=== PATIENT | female | born 1975 | race Two or more races ===

== ENCOUNTER → 2018-10-29 | Day surgery (SDC) | payer OTHER, BC ==
[~2018-10-29] MED LIST: Acetaminophen TAB* 325 MG PO PRN; Buffered Lidocaine 0.9% SYRIN* 5 ML/SYR SYRINGE INTRADERM ONE; Bupivacaine 0.25% EPI 200,000* 30 ML SDV ONE; Cisatracurium* 2 MG/ML MDV 5 ML ONE; Dexamethasone IV* 4 MG/ML 1 ML (4 MG) ONE; DiMENhydriNATE IV* 50 MG/ML VIAL IV PUSH PRN; Famotidine IV* 10 MG/ML 2 ML (20 mg) ONE; Ketorolac INJ* 30 MG/ML 1 ML VIAL ONE; Lactated Ringers 1000 ML Bag* 1,000 ML IV SCH; Lidocaine 2% PF * 5 ML VIAL ONE; Midazolam* 1 MG/ML 2 ML VIAL (2 MG) ONE; Naloxone* 0.4 MG/ML 1 ML VIAL IV PRN; Ondansetron INJ* 2 MG/ML VIAL IV PRN; Ondansetron INJ* 2 MG/ML VIAL ONE; PROCHLORPERAZINE INJ 5 MG/ML 2 ML VIAL IV PRN; Propofol* 10 MG/ML 20 ML BTL ONE; Succinylcholine* 20 MG/ML 10 ML VIAL ONE; diPHENhydraMINE IV* 50 MG/ML 1 ml VIAL (BENADRYL) IV PRN; fentaNYL* 50 MCG/ML 2 ML VIAL (100 MCG VIAL) IV PRN; fentaNYL* 50 MCG/ML 2 ML VIAL (100 MCG VIAL) ONE
[2018-10-29 10:01] LABS: ABS Basophils 0 10^3/ul (0-0.2); ABS Eosinophils 0.2 10^3/ul (0-0.6); ABS Lymphocytes 1.2 10^3/ul (1.0-4.8); ABS Monocytes 0.7 10^3/ul (0-0.8); ABS Neutrophils 5.5 10^3/ul (1.5-7.7); ABS Nucleated RBC 0 10^3/ul; Eosinophil % 2.2 %; Hematocrit 39 % (35-47); Hemoglobin 13.2 g/dl (12.0-16.0); Lymphocyte % 15.7 %; Mean Corpuscular HGB Conc 34 g/dl (31-36); Mean Corpuscular Hemoglobin 29 pg (27-31); Mean Corpuscular Volume 87 fL (80-97); Mean Platelet Volume 7.5 fL (7.4-10.4); Nucleated Red Blood Cells % 0.1; Platelet Count 266 10^3/ul (150-450); Red Blood Count 4.49 10^6/ul (4.00-5.40); Red Cell Distribution Width 13 % (10.5-15); White Blood Count 7.5 10^3/ul (3.5-10.8)
[2018-10-29 15:07] VITALS: BP 126/92
--- NOTE | 2018-10-30 00:15 | OP ---
OPERATIVE REPORT: DATE OF OPERATION: 10/29/18 DATE OF : 77 SURGEON: Lety Shaffer MD CLINIC MANAGER: None. ANESTHESIA: General endotracheal with local anesthesia. PRE-OP DIAGNOSIS: Desires permanent sterility. POST-OP DIAGNOSIS: Desires permanent sterility. OPERATIVE PROCEDURE: Laparoscopic bilateral tubal ligation. FINDINGS: Revealed normal-appearing tubes and ovaries bilaterally, normal- appearing uterus, normal- appearing bowel. Appendix not able to be identified. Normal-appearing liver edge. ESTIMATED BLOOD LOSS: Minimal. URINE OUTPUT: 120 cc of clear yellow urine. FLUIDS: 2000 cc of crystalloid. COMPLICATIONS: None apparent. DISPOSITION: Stable to recovery room. DESCRIPTION OF PROCEDURE: The patient was placed in dorsal lithotomy position. Abdomen was prepped i n universal Shailesh stirrups. Abdomen and vagina were prepped and draped in a sterile standard fash ion. The self-cath was placed for drainage of clear yellow urine. Sterile Graves speculum was inser niki, cervix was visualized, grasped on the anterior lip with a single-tooth tenaculum and a Hulka cla mp was placed without complications. Single-tooth tenaculum was removed. Sterile speculum was remove d. Attention was then focused to abdominal portion of the procedure. The infraumbilical area was in fused with 0.25% Marcaine with epi 8 cc. Incision was made using an 11 scalpel blade. The Santhosh wa s used to grasp the fascia. Fascia was incised using scalpel and Metzenbaum scissors. The peritoneu m was then entered bluntly. Devaughn trocar and trocar sheath were then inserted and insufflate balloo n was insufflated. Please note that prior to this, 0 Vicryl sutures were placed in the fascial edge. After insufflation of the Devaughn catheter balloon, laparoscope was inserted confirming excellent po sitioning. Pneumoperitoneum was then created using CO2. The tubes and ovaries were visualized as wel l as the uterus, bowel, liver edge; all of which were noted to have a normal appearance without any e vidence of adhesions. An operative scope was then used using a Quireppinger. The left tube was cauter ized for approximately a 3 cm portion and this process was then repeated on the right. Pneumoperiton eum was then released. The patient was returned to dorsal lithotomy position. The fascia was reappr oximated using 0 Vicryl in a running fashion and the stay sutures were released on the fascia. The s kin was reapproximated using 4-0 Vicryl in a subcuticular fashion. Hulka clamp was then removed. Al l sponge, instrument, and blade counts were correct throughout the case. The patient tolerated the p rocedure well and went to recovery room in stable condition. [id number]/[facility] #: [id number]
== END | disposition home or self-care (01) ==
LOC: OR 09:06
PROVIDERS: ATTEND Obstetrics & Gynecology
DX: Z30.2 Encounter for sterilization (principal); Z87.891 Personal history of nicotine dependence; C92.12 Chronic myeloid leukemia, BCR/ABL-positive, in relapse
CPT/HCPCS: 36415; 81025; 85025; 86850; 86900; 86901; J0330; J1100; J1885; J2250; J2405; J2704; J3010

== ENCOUNTER 2019-12-15 09:10 | Emergency (ER) | payer OTHER, BC ==
--- OUTSIDE RECORDS SUMMARY | 2019-12-15 09:16 | XMS REPORT | Continuity of Care Document ---
:1975 External Reference #:[id number] Author Name Ke Loco M.D. (transmitted by agent of provider Megan Bajwa ) Address [address] [address] Care Team Providers Name Role Phone Nanette Moeller MD - Family Medicine Care Team Information Psychic Reader Julius Hernandez M.D. - Hematology & Care Team Information Psychic Reader [phone] Oncology Problems Active Problems Provider Date Heart murmur Mj Miguel M.D., [facility], [facility] Onset: 11/22/2013 Cardiomegaly Mj Miguel M.D., [facility], [facility] Onset: 11/22/2013 Disorder of pericardium Mj Miguel M.D., [facility], [facility] Onset: 11/28/2013 New daily persistent headache Shelbie Cleveland M.D. Onset: 12/27/2015 Social History Type Date Description Comments Sex Unknown ETOH Use Occasionally consumes alcohol Tobacco Use Start: Unknown Patient is a former quit in 1998 End: Unknown smoker Recreational Drug Use Denies Drug Use Smoking Status Reviewed: 11/01/19 Patient is a former quit in 1998 smoker Exercise Type/Frequency Exercises regularly does exercises in home gym, but mainly does work-out videos, and occasionally elliptical machine Allergies, Adverse Reactions, Alerts Active Allergies Reaction Severity Comments Date Oxycodone Hives 01/10/2016 Sprycel pericardial effusion 11/22/2018 Inactive Allergies NKDA 11/22/2013 Medications Active Medications SIG Qnty Indications Ordering Date Provider Irbesartan 1 by mouth every 90tabs Ke Costello 01/07/2019 75mg Tablets day Sloan Loco Latanoprost 1 drop to each Ke GroveFatmata 11/22/2018 0.005% Solution eye once daily Sloan Loco for glaucoma 1 tablet po Unknown daily Vitamin D3 1 by mouth every 30caps Unknown 2000Unit day Capsules Tylenol Extra Strength 2 by mouth as Unknown needed 500mg Tablets Bosulif 4 tablets once Unknown 100mg Tablets daily by mouth Vitamin B-Complex 1 by mouth every Unknown Tablets day Aarti Allergy 1 tab by mouth Unknown 180mg every day as Tablets needed Fish Oil [place]-3 take one Unknown 1000mg capsule/tablet Capsules daily by mouth Bupropion HCL ER (XL) 1 by mouth every Unknown 300mg day Tablets ER 24HR Benadryl Allergy 2 tabs once Unknown 25mg daily with Tablets bosulif by mouth as needed Pseudoephedrine HCL ER take 120mg every Unknown 12 hours 120mg Tablets ER 12HR Immunizations Description No Information Available Vital Signs Date Vital Result Comment 11/01/2019 1:18pm Height 66 inches 5'6" Weight 184.38 lb no shoes Heart Rate 76 /min BP Systolic Sitting 142 mmHg Lue (regular cuff) BP Diastolic Sitting 80 mmHg Lue (regular cuff) BP Systolic Standing 150 mmHg BP Diastolic Standing 84 mmHg BP Systolic Lying Down 134 mmHg la repeat sit BP Diastolic Lying Down 73 mmHg la repeat sit BMI (Body Mass Index) 29.8 kg/m2 Ejection Fraction 55-60% Echo 12/31/18 01/24/2019 9:14am Height 66 inches 5'6" Weight 198.25 lb Heart Rate 80 /min BP Systolic Sitting 138 mmHg BP Diastolic Sitting 82 mmHg BP Systolic Standing 130 mmHg BP Diastolic Standing 80 mmHg BMI (Body Mass Index) 32.0 kg/m2 Ejection Fraction 55/60% 12/31/18 echo Results Description No Information Available Procedures Date Code Description Status 11/01/2019 85290 EKG Tracing & Interpretation Completed 01/23/2016 746818892 Diabetic Retinal Eye Exam Completed Medical Devices Description No Information Available Encounters Description No Information Available Assessments Date Code Description Provider 11/01/2019 I10 Essential (primary) hypertension Ke Loco M.D. 11/01/2019 I50.32 Chronic diastolic (congestive) heart Ke Loco M.D. failure 11/01/2019 I34.0 Nonrheumatic mitral (valve) insufficiency Ke Loco M.D. 11/01/2019 I31.3 Pericardial effusion (noninflammatory) Ke Loco M.D. Plan of Treatment Future Appointment(s):01/20/2020 3:00 pm - [place] ECHO Schedule at [facility]11/01/2019 - Ke Loco M.D.I10 Essential (primary) nbkgipilqmimE63.32 Chronic diastolic (congestive) heart hjvbswoU61.0 Nonrheumatic mitral (valve) dvojgtvkjluuqL46.3 Pericardial effusion ( noninflammatory)New Orders:Echocardiogram, Scheduled: 01/20/20Follow up:please obtain 10/13 labs from [facility] [place] ov 10 m Functional Status Description No Information Available Mental Status Description No Information Available Referrals Description No Information Available
--- OUTSIDE RECORDS SUMMARY | 2019-12-15 09:16 | XMS REPORT | Continuity of Care Document ---
:1975 External Reference #:[id number] Author Name Garett Walsh, OD Address [address] [place] [address] Care Team Providers Name Role Phone Nanette Bess MD - Community Administrator Care Team Information Cardiovascular Lab Director [phone] Problems Description No Information Available Social History Type Date Description Comments Sex Unknown ETOH Use Occasionally consumes alcohol Tobacco Use Start: Unknown Patient has never smoked Smoking Status Reviewed: 10/21/19 Patient has never smoked Allergies, Adverse Reactions, Alerts Active Allergies Reaction Severity Comments Date Tylenol with codiene 12/02/2016 Seasonal 04/21/2019 Inactive Allergies NKDA 12/02/2016 Medications Active Medications SIG Qnty Indications Ordering Provider Date Latanoprost 1 drops both 7.5ml Garett Walsh, OD 01/17/2019 0.005% Solution eyes every night 19 Unknown Chewtabs Bosulif Unknown 400mg Tablets Bupropion Hydrochloride Take 1 Tablet By Unknown ER (XL) Mouth Every Day 300mg Tablets ER 24HR Irbesartan Take 1 Tablet By Unknown 75mg Tablets Mouth Every Day Immunizations Description No Information Available Vital Signs Date Vital Result Comment 10/21/2019 9:51am Intraocular Pressure Right Eye 14 mmHg Intraocular Pressure Left Eye 14 mmHg 07/22/2019 9:20am Intraocular Pressure Right Eye 16 mmHg Intraocular Pressure Left Eye 17 mmHg Results Description No Information Available Procedures Date Code Description Status 10/21/2019 61621 Eye Exam Est Intermediate Completed 07/22/2019 61538 Oct, Optic Nerve Completed 07/22/2019 64773 Eye Exam Est Intermediate Completed Medical Devices Description No Information Available Encounters Description No Information Available Assessments Date Code Description Provider 10/21/2019 H40.1131 Primary open-angle glaucoma, bilateral, mild Garett Walsh, OD stage 07/22/2019 H40.1131 Primary open-angle glaucoma, bilateral, mild Garett Walsh, MAMIE stage Plan of Treatment Future Appointment(s):01/27/2020 9:45 am - Garett Walsh OD [id number] - Garett Walsh ODH40.1131 Primary open-angle glaucoma, bilateral, mild stageFollow up:3 mos full, sooner PRN Functional Status Description No Information Available Mental Status Description No Information Available Referrals Description No Information Available
--- OUTSIDE RECORDS SUMMARY | 2019-12-15 09:16 | XMS REPORT | Continuity of Care Document ---
:1975 External Reference #:[id number] Author Name Ke Loco M.D. (transmitted by agent of provider Megan Bajwa ) Address [address] [address] Care Team Providers Name Role Phone Nanette Moeller MD - Family Medicine Care Team Information Enterprise Application Developer Julius Hernandez M.D. - Hematology & Care Team Information Enterprise Application Developer [phone] Oncology Problems Active Problems Provider Date Heart murmur Mj Miguel M.D., [facility], [facility] Onset: 11/22/2013 Cardiomegaly Mj Miguel M.D., [facility], [facility] Onset: 11/22/2013 Disorder of pericardium Mj Miguel M.D., [facility], [facility] Onset: 11/28/2013 New daily persistent headache [...] every day as Tablets needed Fish Oil [place]-3 take one Unknown 1000mg capsule/tablet Capsules daily [...] Available Procedures Date Code Description Status 11/01/2019 44365 EKG Tracing & Interpretation Completed 01/23/2016 [id number] Diabetic Retinal Eye Exam Completed Medical Devices [...] of Treatment Future Appointment(s):01/20/2020 3:00 pm - [place] ECHO Schedule at [facility]11/01/2019 - Ke Loco M.D.I10 Essential (primary) bafsmejsgwbiH82.32 Chronic diastolic (congestive) heart kobpbhgV46.0 Nonrheumatic mitral (valve) czlqkwzcnvlwiB98.3 Pericardial effusion ( noninflammatory)New Orders:Echocardiogram, Scheduled: 01/20/20Follow up:please obtain 10/13 [place] [facility] [place] Functional Status Description No Information Available Mental Status Description No Information Available Referrals Description No Information Available
--- OUTSIDE RECORDS SUMMARY | 2019-12-15 09:16 | XMS REPORT | Continuity of Care Document ---
:1975 External Reference #:[id number] Author Name Garett Walsh, OD Address [address] [place] [address] Care Team Providers Name Role Phone Nanette Bess MD - Horse Buyer Care Team Information Bottle Line Worker [phone] Problems Description No Information Available Social History [...] Available Vital Signs Date Vital Result Comment 07/22/2019 9:20am Intraocular Pressure Right Eye 16 mmHg Intraocular Pressure Left Eye 17 mmHg 04/21/2019 9:16am Intraocular Pressure Right Eye 14 mmHg Intraocular Pressure Left Eye 15 mmHg Results Description No Information Available Procedures Date Code Description Status 07/22/2019 57595 Oct, Optic Nerve Completed 07/22/2019 96877 Eye Exam Est Intermediate Completed Medical Devices Description No Information Available Encounters Description No Information Available Assessments Date Code Description Provider 10/21/2019 H40.1131 Primary open-angle glaucoma, bilateral, mild Garett Walsh, OD stage 07/22/2019 H40.1131 Primary open-angle glaucoma, bilateral, mild Garett Walsh, OD stage Plan of Treatment 10/21/2019 - Garett Walsh, ODH40.1131 Primary open-angle glaucoma, bilateral, mild stageFollow up:3 mos full, sooner PRN Functional Status Description No Information Available Mental Status Description No Information Available Referrals Description No Information Available
[2019-12-15 09:17] VITALS: BP 138/83
--- NOTE | 2019-12-15 10:49 | UC ---
Complaint Female HPI - HPI Summary HPI Summary: 44-year-old woman comes in with a chief complaint of burning with urination urinary frequency and urgency for 1 day. No fevers or chills no flank pain. Denies any abnormal vaginal discharge or concern of STI. Patient does have some mild suprapubic discomfort but no complaint of any other abdominal pain. - History Of Current Complaint Chief Complaint: UCGU Stated Complaint: UTI Time Seen by Provider: 12/15/19 10:35 Hx Last Menstrual Period: 12/02/19 Pain Intensity: 5 - Allergies/Home Medications Allergies/Adverse Reactions: Allergies Allergy/AdvReac Type Severity Reaction Status Date / Time acetaminophen [From Percocet] Allergy Itching Verified 12/15/19 09:17 latex Allergy Rash Verified 12/15/19 09:17 oxycodone [From Percocet] Allergy Itching Verified 12/15/19 09:17 ENVIRONMENTAL/SEASONAL Allergy SNEEZE,CONGESTION,SKIN Uncoded 12/15/19 09:17 HAYFEVER IRRITATION, INFLAMES OCULAR ROSECEA Home Medications: Home Medications 1 tab PO QAM 10/24/14 [History Confirmed 12/15/19] Vitamin D 2,000 units PO QAM 10/24/14 [History Confirmed 12/15/19] Aarti (NF) 1 tab PO QAM PRN 11/21/15 [History Confirmed 12/15/19] Bosutinib [Bosulif] 400 mg PO QPM 10/21/18 [History Confirmed 12/15/19] Vitamin B Complex [Super B-50 Complex] 1 each PO QAM 10/21/18 [History Confirmed 12/15/19] buPROPion SR TAB* [Wellbutrin SR TAB*] 300 mg PO QAM 10/21/18 [History Confirmed 12/15/19] Cephalexin CAP* [Keflex CAP*] 500 mg PO TID #21 cap 12/15/19 [Rx] Irbesartan 1 tab PO DAILY 12/15/19 [History Confirmed 12/15/19] PMH/Surg Hx/FS Hx/Imm Hx Previously Healthy: Yes - Surgical History Surgical History: Yes Surgery Procedure, Year, and Place: wisdom teeth removed;. bone marrow biopsy. [place] 2013 nov. c section 2016 - Family History Known Family History: Positive: Non-Contributory - Social History Alcohol Use: Weekly Alcohol Amount: 4-5 per week Substance Use Type: None Smoking Status (MU): Never Smoked Tobacco Amount Used/How Often: 1/2 pack a day for 2 years When Did the Patient Quit Smoking/Using Tobacco: 1997 - Immunization History Most Recent Influenza Vaccination: fall 2014 Most Recent Tetanus Shot: 08/30/16 Most Recent Pneumonia Vaccination: none Review of Systems All Other Systems Reviewed And Are Negative: Yes Constitutional: Positive: Negative Skin: Positive: Negative Eyes: Positive: Negative ENT: Positive: Negative Respiratory: Positive: Negative Cardiovascular: Positive: Negative Genitourinary: Positive: Dysuria, Frequency, Urgency Motor: Positive: Negative Neurovascular: Positive: Negative Musculoskeletal: Positive: Negative Neurological/Mental Status: Positive: Negative Psychological: Positive: Negative Is Patient Immunocompromised?: No Physical Exam Triage Information Reviewed: Yes Appearance: Well-Appearing, No Pain Distress, Well-Nourished Vital Signs: Initial Vital Signs Temp 98.2 F 12/15/19 09:13 Pulse 86 12/15/19 09:13 Resp 16 12/15/19 09:13 BP 138/83 12/15/19 09:13 Pulse Ox 100 12/15/19 09:13 Vital Signs Reviewed: Yes Eye Exam: Normal Eyes: Positive: Conjunctiva Clear Neck: Positive: Supple Respiratory: Positive: Lungs clear, Normal breath sounds, No respiratory distress Abdomen Description: Positive: Other: - Mild tenderness to palpation suprapubically.. Negative: CVA Tenderness (R), CVA Tenderness (L) Musculoskeletal: Positive: Strength Intact, ROM Intact Neurological: Positive: Alert, Muscle Tone Normal Psychological: Positive: Age Appropriate Behavior Skin Exam: Normal Complaint Female Dx - Course Course Of Treatment: Symptoms and UA are consistent with urinary tract infection. Will treat with Keflex. Discussed ulcw-hbd-[id number] treatment with Pyridium if needed. That the patient know that if she did not improve her got worse she needs to get reevaluated again right away. - Differential Dx/Diagnosis Provider Diagnosis: UTI (urinary tract infection) Discharge ED - Sign-Out/Discharge Documenting (check all that apply): Patient Departure All imaging exams completed and their final reports reviewed: No Studies - Discharge Plan Condition: Stable Disposition: HOME Prescriptions: Cephalexin CAP* [Keflex CAP*] 500 mg PO TID #21 cap Patient Education Materials: Urinary Tract Infection in Women (ED) Referrals: Nanette Mann MD [Primary Care Provider] - Additional Instructions: FOLLOW UP WITH YOUR DOCTOR IF NOT COMPLETELY IMPROVED. GET REEVALUATED SOONER IF NOT IMPROVED OR WORSE; PAIN, FEVER, YOU FEEL ILL OR ANY QUESTIONS OR CONCERNS. - Billing Disposition and Condition Condition: STABLE Disposition: Home
== END 2019-12-15 10:59 | disposition home or self-care (01) ==
LOC: UCEAST 09:10
DX: N39.0 Urinary tract infection, site not specified (principal); Z88.6 Allergy status to analgesic agent; Z91.040 Latex allergy status; Z88.5 Allergy status to narcotic agent; Z91.09 Other allergy status, other than to drugs and biological substances
CPT/HCPCS: 81003; 84702; 87077; 87086; 87186; 99212; G0463